=== PATIENT | male | born 1975 | race Caucasian/White ===

== ENCOUNTER 2017-10-13 09:49 | Emergency (ER) | payer MEDICAID ==
[~2017-10-13] VITALS: Ht 170.2 cm; Wt 120.0 kg
[2017-10-13] MEDS ORDERED: IBUPROFEN 800MG TABLET PO ONE (12:15)
[2017-10-13] MEDS ORDERED: LORAZEPAM 1MG TABLET PO ONE (12:15)
[2017-10-13 14:09] VITALS: BP 127/72
== END 2017-10-13 14:10 | disposition home or self-care (01) ==
LOC: ER 09:51
DX: M25.511 Pain in right shoulder (principal); R07.89 Other chest pain; V43.52XA Car driver injured in collision with other type car in traffic accident, initial encounter; Y93.89 Activity, other specified; Y92.488 Other paved roadways as the place of occurrence of the external cause
CPT/HCPCS: 71010; 73030; 93005; 99284